=== PATIENT | female | born 1965 | race Caucasian/White ===

== ENCOUNTER → 2016-05-20 | Outpatient (CLI) | payer BC ==
--- NOTE | 2016-05-20 23:15 | MR ---
EXAMINATION TYPE: MR knee LT wo con DATE OF EXAM: 05/20/2016 6:37 PM COMPARISON: NONE HISTORY: PAIN IN LEFT KNEE TECHNIQUE: Multiplanar, multisequence imaging of the left knee is performed without IV contrast. FINDINGS: The anterior and posterior cruciate ligaments are intact. There is a small vertical tear through the anterior horn of the lateral meniscus. The other menisci appear fairly normal. There is a mild knee j oint effusion. I see no fracture. The collateral ligaments medially appear normal. There is slight in creased signal in the anterior aspect of the lateral collateral ligaments consistent with partial tea r. There is adjacent mild subcutaneous edema. I see no focal bone destruction. IMPRESSION: There is a small vertical tear of the anterior horn of the lateral meniscus. There is a partial tear of the medial collateral ligament anteriorly. No fracture. Mild to moderate knee joint effusion.
== END | disposition home or self-care (01) ==
LOC: RADMRIMAIN 17:31
PROVIDERS: ATTEND Orthopaedic Surgery
DX: M23.242 Derangement of anterior horn of lateral meniscus due to old tear or injury, left knee (principal); S83.412A Sprain of medial collateral ligament of left knee, initial encounter

== ENCOUNTER → 2016-07-16 | Outpatient (CLI) | payer BC ==
--- NOTE | 2016-07-16 08:27 | US ---
EXAMINATION TYPE: US transvaginal DATE OF EXAM: 07/16/2016 8:05 AM COMPARISON: NONE CLINICAL HISTORY: N95.0 Post menopausal bleeding. 2 weeks ago patient had discolored discharge - brow n, nothing now, no pain TECHNIQUE: TV Date of LMP: 2+years ago EXAM MEASUREMENTS: Uterus: 7.7 x 4.4 x 3.9 cm Endometrial Stripe: 0.3 cm Right Ovary: 1.7 x 1.1 x 0.8 cm Left Ovary: 1.8 x 1.1 x 1.2 cm Findings: 1. Uterus: Anteverted wnl 2. Endometrium: wnl 3. Right Ovary: 0.8cm follicle seen 4. Left Ovary: wnl 5. Bilateral Adnexa: wnl 6. Posterior cul-de-sac: wnl IMPRESSION: No significant abnormality appreciated.
== END ==
LOC: RADUSWWP 07:46
PROVIDERS: ATTEND Obstetrics & Gynecology
DX: N95.0 Postmenopausal bleeding (principal)
CPT/HCPCS: 76830

== ENCOUNTER → 2017-04-01 | Outpatient (CLI) | payer BC ==
--- NOTE | 2017-04-01 12:12 | BD ---
EXAMINATION TYPE: MG DEXA axial skeleton. DATE OF EXAM: 04/01/2017 COMPARISON: NONE CLINICAL HISTORY: PT IS A 52 YR OLD FEMALE...ICD10 CODE: N91.1 POST MENOPAUSAL SYMPTOMS Height: 69.5 Weight: 160 FRAX RISK QUESTIONS: Alcohol (3 or more units per day): NO Family History (Parent hip fracture): NO Glucocorticoids (More than 3mos): NO (Ex: prednisone, prednisolone, methylprednisolone, dexamethasone, and hydrocortisone). History of Fracture in Adulthood: YES Secondary Osteoporosis: NO 1. Type 1 Diabetes: NO 2. Hyperthyroidism: NO 3. Menopause before 45: AT 46 YRS OLD 4. Malnutrition: NO 5. Chronic liver disease: NO Rheumatoid Arthritis: NO Current Tobacco Use: NO RISK FACTORS HISTORY OF: History of Wrist Fracture: LT WRIST When: AN ADULT Family History of Osteoporosis: NO Active: YES Diet low in dairy products/other sources of calcium: NO Postmenopausal woman: YES AT 46 YRS OLD Lost more than 2 inches in height since high school: NO Hyperparathyroidism: NO Adrenal Insufficiency: NO MEDICATIONS: Additional Medications: ANTI SEIZURE MEDS ONLY Additional History: EPILEPSY, EXAM MEASUREMENTS: Bone mineral densitometry was performed using the [employer] System. Bone mineral density as measured about the Lumbar spine is: ----- L1-L4(G/cm2): 1.380 T Score Values are as follows: ----- L1: 1.2 ----- L2: 1.4 ----- L3: 2.5 ----- L4: 1.4 ----- L1-L4: 1.7 Bone mineral density THIS IS HER FIRST BONE DENSITY STUDY......BASELINE Bone mineral density about the R hip (g/cm2): 1.048 Bone mineral density about the L hip (g/cm2): 1.086 T Score values are as follows: -----R Neck: -0.3 -----L Neck: -0.2 -----R Total: 0.3 -----L Total: 0.6 Bone mineral density BASELINE STUDY FRAX%'S: THERE IS A 3.8% CHANCE OF A MAJOR OSTEOPOROTIC FX AND A 0.1% OF A HIP FX......PROBABILITY OF FX IN 10 YRS TIME IMPRESSION: Normal (Values between +1 and -1 indicate normal bone mass). Consider repeating this study in 5 year s or sooner if there is some new clinical indication. NOTE: T-SCORE=SD OF THE YOUNG ADULT MEAN.
--- NOTE | 2017-04-07 10:20 | MM ---
Reason for exam: screening (asymptomatic). Last mammogram was performed 6 years and 9 months ago. History: Patient had first child at age 35. Took hormonal contraceptives for 20 years. Physical Findings: A clinical breast exam by your physician is recommended on an annual basis and results should be correlated with mammographic findings. MG 3D Screening Mammo W/Cad Bilateral CC and MLO view(s) were taken. Prior study comparison: December 10, 2015, mammogram, performed at [facility]. November 28, 2014, mammogram, performed at [facility]. June 17, 2010, CAD bilateral diagnostic mammogram. January 24, 2010, right breast diagnostic digital tres. The breast tissue is heterogeneously dense. This may lower the sensitivity of mammography. No suspicious abnormality. No significant changes when compared with prior studies. ASSESSMENT: Negative, BI-RAD 1 RECOMMENDATION: Routine screening mammogram of both breasts in 1 year.
== END | disposition home or self-care (01) ==
LOC: RADMAMWWP 08:21
PROVIDERS: ATTEND Obstetrics & Gynecology
DX: Z12.31 Encounter for screening mammogram for malignant neoplasm of breast (principal); N95.1 Menopausal and female climacteric states
CPT/HCPCS: 77080; 77063; G0202

== ENCOUNTER → 2018-06-15 | Outpatient (CLI) | payer BC ==
--- NOTE | 2018-06-17 09:21 | MM ---
Reason for exam: screening (asymptomatic). Last mammogram was performed 1 year and 2 months ago. History: Patient is postmenopausal and had first child at age 35. Took hormonal contraceptives for 20 years. Physical Findings: A clinical breast exam by your physician is recommended on an annual basis and results should be correlated with mammographic findings. MG 3D Screening Mammo W/Cad Bilateral CC and MLO view(s) were taken. Prior study comparison: April 01, 2017, bilateral MG 3d screening mammo w/cad. December 10, 2015, mammogram, performed at [facility]. The breast tissue is heterogeneously dense. This may lower the sensitivity of mammography. No significant changes when compared with prior studies. ASSESSMENT: Negative, BI-RAD 1 RECOMMENDATION: Routine screening mammogram of both breasts in 1 year.
== END | disposition home or self-care (01) ==
LOC: RADMAMWWP 08:51
PROVIDERS: ATTEND Obstetrics & Gynecology
DX: Z12.31 Encounter for screening mammogram for malignant neoplasm of breast (principal)
CPT/HCPCS: 77063; 77067

== ENCOUNTER → 2019-06-05 | Outpatient (CLI) | payer BC ==
--- NOTE | 2019-06-05 19:02 | MR ---
EXAMINATION TYPE: MR shoulder LT wo con DATE OF EXAM: 06/05/2019 COMPARISON: Pain HISTORY: Lt shoulder pain/injury summer 2018 TECHNIQUE: Multiplanar, multisequence imaging of the left shoulder is performed without contrast. FINDINGS: Rotator Cuff: There is no evidence to suggest through thickness rotator cuff tear or retraction. Ther e is intermediate signal involving the anterior fibers of the supraspinatus tendon measuring approxim ately 8 mm in transverse dimension just proximal to the insertion compatible with an area of tendinos is Acromioclavicular Joint: Mild hypertrophic change of the AC joint but no mass effect upon the rotator cuff. No marrow edema. No fluid within the joint. Glenohumeral Joint: Joint space preserved with no sizable joint effusion. There is thickening and sli ght irregularity at the glenoid insertion of the inferior glenohumeral ligament. Labrum: The labrum appears grossly intact given limitation of non-arthrogram study. However there emilee ears to be mild irregularity and increased signal along the posterior superior labrum and a subtle te ar is not excluded. Biceps Tendon: The long head of biceps is in normal location within bicipital groove. Small amount of fluid surrounds the biceps tendon compatible with mild tendinosis. Bone marrow signal: No focal abnormal marrow signal is appreciated. IMPRESSION: 1. There is ill-definition and increased signal at the glenoid insertion of the inferior glenohumeral ligament compatible with ligamentous sprain and partial tear. Correlate clinically. 2. Supraspinatus tendinosis with no definite tear. 3. Bicipital mild tendinosis. 4. there is mild irregularity along the posterior superior labrum suspicious for subtle tear.
== END | disposition home or self-care (01) ==
LOC: RADMRIMAIN 18:07
PROVIDERS: ATTEND Orthopaedic Surgery
DX: M25.512 Pain in left shoulder (principal)

== ENCOUNTER → 2019-08-02 | Outpatient (CLI) | payer BC ==
[2019-08-02 08:44] LABS: HCT 45.3 % (34.0-46.0); HGB 15.1 gm/dL (11.4-16.0); MCH 29.4 pg (25.0-35.0); MCHC 33.2 g/dL (31.0-37.0); MCV 88.6 fL (80.0-100.0); Mean Platelet Volume 7.4; Platelet Count 270 k/uL (150-450); RBC 5.12 m/uL (3.80-5.40); RDW 12.5 % (11.5-15.5); WBC 5.5 k/uL (3.8-10.6)
[2019-08-02 08:49] LABS: T4, Free (Free Thyroxine) 0.91 ng/dL (0.78-2.19)
--- NOTE | 2019-08-02 09:52 | MM ---
Reason for exam: screening (asymptomatic). Last mammogram was performed 1 year and 2 months ago. History: Patient is postmenopausal and had first child at age 35. Took hormonal contraceptives for 20 years. Physical Findings: A clinical breast exam by your physician is recommended on an annual basis and results should be correlated with mammographic findings. MG 3D Screening Mammo W/Cad Bilateral CC and MLO view(s) were taken. Prior study comparison: June 15, 2018, bilateral MG 3d screening mammo w/cad. April 01, 2017, bilateral MG 3d screening mammo w/cad. The breast tissue is heterogeneously dense. This may lower the sensitivity of mammography. No suspicious abnormality. No significant changes when compared with prior studies. ASSESSMENT: Negative, BI-RAD 1 RECOMMENDATION: Routine screening mammogram of both breasts in 1 year.
== END | disposition home or self-care (01) ==
LOC: RADMAMWWP 07:09
PROVIDERS: ATTEND Obstetrics & Gynecology
DX: Z12.31 Encounter for screening mammogram for malignant neoplasm of breast (principal); Z13.220 Encounter for screening for lipoid disorders; Z13.29 Encounter for screening for other suspected endocrine disorder
CPT/HCPCS: 77063; 77067; 80061; 84439; 84443; 84479; 85027

== ENCOUNTER → 2019-11-01 | Outpatient (CLI) | payer BC ==
[2019-11-01 18:13] LABS: T4, Free (Free Thyroxine) 1.1 ng/dL (0.80-1.80)
== END | disposition home or self-care (01) ==
LOC: LABWHC1 10:52
PROVIDERS: ATTEND Obstetrics & Gynecology
DX: Z13.29 Encounter for screening for other suspected endocrine disorder (principal)
CPT/HCPCS: 36415; 84439; 84443; 84479

== ENCOUNTER → 2020-09-12 | Outpatient (CLI) | payer OTHER ==
[2020-09-12 08:22] LABS: HCT 42.2 % (34.0-46.0); HGB 14.6 gm/dL (11.4-16.0); MCH 30.1 pg (25.0-35.0); MCHC 34.7 g/dL (31.0-37.0); MCV 86.8 fL (80.0-100.0); Mean Platelet Volume 6.7; Platelet Count 263 k/uL (150-450); RBC 4.86 m/uL (3.80-5.40); WBC 5.3 k/uL (3.8-10.6)
[2020-09-12 08:33] LABS: Albumin 4.6 g/dL (3.5-5.0); Calcium 10.3 mg/dL (8.4-10.2); Potassium 5.5 mmol/L (3.5-5.1); Total Bilirubin 0.5 mg/dL (0.2-1.3); Total Protein 6.7 g/dL (6.3-8.2)
[2020-09-12 08:49] LABS: T4, Free (Free Thyroxine) 1.04 ng/dL (0.78-2.19)
--- NOTE | 2020-09-13 15:02 | MM ---
Reason for exam: screening (asymptomatic). Last mammogram was performed 1 year and 1 month ago. History: Patient is postmenopausal and had first child at age 35. Took hormonal contraceptives for 20 years. Physical Findings: A clinical breast exam by your physician is recommended on an annual basis and results should be correlated with mammographic findings. MG 3D Screening Mammo W/Cad Bilateral CC and MLO view(s) were taken. Prior study comparison: August 02, 2019, bilateral MG 3d screening mammo w/cad. June 15, 2018, bilateral MG 3d screening mammo w/cad. The breast tissue is heterogeneously dense. This may lower the sensitivity of mammography. No significant changes when compared with prior studies. ASSESSMENT: Benign, BI-RAD 2 RECOMMENDATION: Routine screening mammogram of both breasts in 1 year.
== END | disposition home or self-care (01) ==
LOC: RADMAMWWP 07:03
PROVIDERS: ATTEND Obstetrics & Gynecology
DX: Z12.31 Encounter for screening mammogram for malignant neoplasm of breast (principal); Z78.0 Asymptomatic menopausal state
CPT/HCPCS: 77063; 77067; 80053; 80061; 84439; 84443; 84479; 85027

== ENCOUNTER → 2020-10-16 | Outpatient (CLI) | payer OTHER ==
[2020-10-17 00:18] LABS: Albumin 4.9 g/dL (3.80-4.90); Albumin/Globulin Ratio 2.88 (1.60-3.17); Anion Gap 9.4 mmol/L (4.00-12.00); BUN/Creat Ratio 17.78 Ratio (12.00-20.00); Calcium 10.3 mg/dL (8.7-10.3); Carbon Dioxide 28.6 mmol/L (21.6-31.8); Globulin 1.7 g/dL (1.6-3.3); Non-African American GFR(CKD) 72.5 (60.0-200.0); Potassium 5.1 mmol/L (3.5-5.5); Total Bilirubin 0.4 mg/dL (0.3-1.2); Total Protein 6.6 g/dL (6.2-8.2)
[2020-10-17 00:26] LABS: Prolactin 6.4 ng/mL (2.8-29.2); T4, Free (Free Thyroxine) 1.1 ng/dL (0.80-1.80)
== END | disposition home or self-care (01) ==
LOC: LABWHC1 09:18
PROVIDERS: ATTEND Internal Medicine Endocrinology, Diabetes & Metabolism
DX: E03.8 Other specified hypothyroidism (principal); E83.52 Hypercalcemia; R53.83 Other fatigue
CPT/HCPCS: 36415; 80053; 83970; 84146; 84439; 84443; 86376

== ENCOUNTER → 2020-10-24 | Outpatient (CLI) | payer OTHER ==
--- NOTE | 2020-10-24 14:42 | US ---
EXAMINATION TYPE: US thyroid st tissue head/neck DATE OF EXAM: 10/24/2020 COMPARISON: NONE CLINICAL HISTORY: E03.8 Hypothyroidism. hypothyroidism GLAND SIZE: Right Lobe: 5.0 x 2.0 x 2.6 cm Overall Parenchyma: heterogenous Left Lobe: 4.2 x 1.2 x 1.2 cm Overall Parenchyma: homogeneous Isthmus Thickness: 0.4 cm NODULES RIGHT: # of nodules measured on right: 2 1. 0.8 X 0.9 x 0.8 cm, upper , solid, hypoechoic nodule, which is taller than wide, with smooth mar gins, with echogenic foci. Prior size: no prior 2. 0.9 X 0.6 x 0.8 cm, mid , solid, hypoechoic nodule, which is wider than tall, with smooth margin s, with echogenic foci. Prior size: no prior LEFT: # of nodules measured on left: 1 1. 0.7 X 0.4 x 0.4 cm, upper , solid, hypoechoic nodule, which is wider than tall, with smooth abigail ins, without echogenic foci. Prior size: no prior ISTHMUS: # of nodules measured in the isthmus: 0 Bilateral neck scanned, no evidence of lymphadenopathy. IMPRESSION: 1 early suspicious findings, follow-up exam in one year is recommended. 2017 ACR TI-RADS LEVEL: TR-RADS 4 - Moderately Suspicious: Follow if > 1 cm, FNA if > 1.5 cm *Highest TI-RADS level nodule reported
== END | disposition home or self-care (01) ==
LOC: RADUSWWP 14:04
PROVIDERS: ATTEND Internal Medicine Endocrinology, Diabetes & Metabolism
DX: E04.2 Nontoxic multinodular goiter (principal)
CPT/HCPCS: 76536

== ENCOUNTER → 2021-01-27 | Outpatient (CLI) | payer OTHER | END | disposition home or self-care (01) | LOC: LABWHC1 12:06 | PROVIDERS: ATTEND Internal Medicine Endocrinology, Diabetes & Metabolism | DX: E03.8 Other specified hypothyroidism (principal) | CPT/HCPCS: 36415; 84443 ==

== ENCOUNTER → 2021-04-15 | Outpatient (CLI) | payer OTHER | END | disposition home or self-care (01) | LOC: LABWHC1 08:59 | PROVIDERS: ATTEND Internal Medicine Endocrinology, Diabetes & Metabolism | DX: E03.8 Other specified hypothyroidism (principal) | CPT/HCPCS: 36415; 84443 ==

== ENCOUNTER → 2021-07-29 | Outpatient (CLI) | payer OTHER ==
[2021-07-30 00:37] LABS: African American GFR (CKD) 78.1 (60.0-200.0); Albumin 4.8 g/dL (3.8-4.9); Albumin/Globulin Ratio 2.61 (1.60-3.17); Anion Gap 14.7 mmol/L (10.00-18.00); BUN/Creat Ratio 16.3 Ratio (12.00-20.00); Blood Urea Nitrogen 15.5 mg/dL (9.0-27.0); Calcium 10.3 mg/dL (8.7-10.3); Carbon Dioxide 24.8 mmol/L (20.0-27.5); Globulin 1.9 g/dL (1.6-3.3); Non-African American GFR(CKD) 67.3 (60.0-200.0); Potassium 4.4 mmol/L (3.5-5.5); Total Bilirubin 0.2 mg/dL (0.30-1.20); Total Protein 6.7 g/dL (6.2-8.2)
== END | disposition home or self-care (01) ==
LOC: LABWHC1 12:14
PROVIDERS: ATTEND Internal Medicine Endocrinology, Diabetes & Metabolism
DX: E03.8 Other specified hypothyroidism (principal); E83.52 Hypercalcemia
CPT/HCPCS: 36415; 80053; 83970; 84443; 86376

== ENCOUNTER → 2021-10-29 | Outpatient (CLI) | payer OTHER ==
[2021-10-29 16:21] LABS: African American GFR (CKD) 73.4 (60.0-200.0); Albumin/Globulin Ratio 2.94 (1.60-3.17); Anion Gap 15.2 mmol/L (10.00-18.00); BUN/Creat Ratio 11.1 Ratio (12.00-20.00); Blood Urea Nitrogen 11.1 mg/dL (9.0-27.0); Calcium 10.1 mg/dL (8.7-10.3); Carbon Dioxide 29.8 mmol/L (20.0-27.5); Globulin 1.7 g/dL (1.6-3.3); Non-African American GFR(CKD) 63.4 (60.0-200.0); Potassium 4.8 mmol/L (3.5-5.5); Total Bilirubin 0.3 mg/dL (0.30-1.20); Total Protein 6.7 g/dL (6.2-8.2)
== END | disposition home or self-care (01) ==
LOC: LABWHC1 08:00
PROVIDERS: ATTEND Internal Medicine Endocrinology, Diabetes & Metabolism
DX: E04.2 Nontoxic multinodular goiter (principal); E03.8 Other specified hypothyroidism; E83.52 Hypercalcemia
CPT/HCPCS: 36415; 80053; 82306; 83970; 84443

== ENCOUNTER → 2021-11-12 | Outpatient (CLI) | payer OTHER ==
--- NOTE | 2021-11-12 20:12 | US ---
EXAMINATION TYPE: US thyroid st tissue head/neck DATE OF EXAM: 11/12/2021 COMPARISON: Thyroid US 10/24/20 CLINICAL HISTORY: E04.2 NONTOXIC MULTINODULAR GOITER. Nodule GLAND SIZE: Right Lobe: 5.4 x 1.9 x 1.5 cm Overall Parenchyma: Heterogenous Left Lobe: 4.4 x 0.9 x 0.9 cm Overall Parenchyma: Heterogenous Isthmus Thickness: 0.16 cm NODULES RIGHT: # of nodules measured on right: 2 1. 0.8 X 0.5 x 0.7 cm, upper lateral, solid or almost completely solid, hyperechoic nodule, which i s wider than tall, with smooth margins, without echogenic foci. Prior size: 0.8 x 0.9 x 0.8 cm 2. 0.6 X 0.6 x 0.6 cm, mid mid, solid or almost completely solid, hypoechoic nodule, which is wider than tall, with smooth margins, without echogenic foci. Prior size: 0.9 x 0.6 x 0.8 cm Multiple calcified areas; largest measuring 0.5 cm LEFT: # of nodules measured on left: 0 ISTHMUS: # of nodules measured in the isthmus: 0 Bilateral neck scanned, no evidence of lymphadenopathy. IMPRESSION: Stable nonspecific subcentimeter nodularity with diffuse glandular heterogeneity. Correlate with thyr oid function testing.
== END | disposition home or self-care (01) ==
LOC: RADUSWWP 16:53
PROVIDERS: ATTEND Internal Medicine Endocrinology, Diabetes & Metabolism
DX: E04.2 Nontoxic multinodular goiter (principal)
CPT/HCPCS: 76536

== ENCOUNTER → 2022-01-16 | Outpatient (CLI) | payer OTHER ==
--- NOTE | 2022-01-16 15:37 | BD ---
EXAMINATION TYPE: Axial Bone Density DATE OF EXAM: 01/16/2022 COMPARISON: NONE CLINICAL HISTORY: 57 years year old Female. ICD-10 CODE: Z78.0 post menopausal Height: 5 FT 9 1/2 IN Weight: 167 FRAX RISK QUESTIONS: Alcohol (3 or more units per day): NO Family History (Parent hip fracture): NO Glucocorticoids (More than 3mos): NO (Ex: prednisone, prednisolone, methylprednisolone, dexamethasone, and hydrocortisone). History of Fracture in Adulthood: YES Secondary Osteoporosis: 1. Type 1 Diabetes: NO 2. Hyperthyroidism: NO 3. Menopause before 45: NO 4. Malnutrition: NO 5. Chronic liver disease: NO Rheumatoid Arthritis: NO Current Tobacco Use: NO RISK FACTORS HISTORY OF: History of Wrist Fracture: RT When: 15-20 YEARS AGO Surgery to Spine/Hip(right/left)/Wrist (right/left): NO Family History of Osteoporosis: NO Active: YES Diet low in dairy products/other sources of calcium: NO Postmenopausal woman: YES Take estrogen and/or progesterone medications: NO Lost more than 2 inches in height since high school: NO Frequent falls: NO Poor Health: GOOD Hyperparathyroidism: NO Adrenal Insufficiency: NO MEDICATIONS: Thyroid Medications: YES Which medication: SYNTHROID How Lon YEARS Additional Medications: SYNTHROID,LACTITOL, Additional History: EXAM MEASUREMENTS: Bone mineral densitometry was performed using the [employer] System. Bone mineral density as measured about the Lumbar spine is: ----- L1-L4(G/cm2): 1.293 T Score Values are as follows: ----- L1: 0.6 ----- L2: 0.6 ----- L3: 1.6 ----- L4: 0.7 ----- L1-L4: 0.9 Bone mineral density has: DECREASED -6.5 % since study of: 2017 Bone mineral density about the R hip (g/cm2): 0.958 Bone mineral density about the L hip (g/cm2): 0.997 T Score values are as follows: -----R Neck: -0.6 -----L Neck: -0.3 -----R Total: -0.1 -----L Total: 0.6 Bone mineral density has: DECREASED -2.2 % since study of: 2017 FRAX%s: The graph provided illustrates a 10.0 % chance for a major osteoporotic fx and a 0.4 % chance for the hips probability for fx in 10 years time. IMPRESSION: Normal (Values between +1 and -1 indicate normal bone mass). Consider repeating this study in 5 year s or sooner if there is some new clinical indication. NOTE: T-SCORE=SD OF THE YOUNG ADULT MEAN.
--- NOTE | 2022-01-20 06:55 | MM ---
Reason for Exam: Screening (asymptomatic). Last mammogram was performed 1 year(s) and 5 month(s) ago. Patient History: Menarche at age 15. First Full-Term at age 35. Late child-bearing (after 30). Postmenopausal. Patient has history of breast feeding. Patient used Hormonal Contraceptives for 20 years. Risk Values: Kelsey 5 year model risk: 1.6%. NCI Lifetime model risk: 10.0%. Prior Study Comparison: 12/10/2015 Screening Mammogram, [facility]. 04/01/2017 Bilateral Screening Mammogram, [facility]. 06/15/2018 Bilateral Screening Mammogram, [facility]. 08/02/2019 Bilateral Screening Mammogram, [facility]. 09/12/2020 Bilateral Screening Mammogram, [facility]. Tissue Density: The breast tissue is heterogeneously dense. This may lower the sensitivity of mammography. Findings: Analyzed By CAD. There is no suspicious group of microcalcifications or new suspicious mass in either breast. Overall Assessment: Negative, BI-RAD 1 Management: Screening Mammogram of both breasts in 1 year. Some advise bilateral breast ultrasound surveillance in patient's with background dense tissue. A clinical breast exam by your physician is recommended on an annual basis and results should be correlated with mammographic findings. Electronically signed and approved by: Orlin Diamond M.D.
== END | disposition home or self-care (01) ==
LOC: RADMAMWWP 09:15
PROVIDERS: ATTEND Obstetrics & Gynecology
DX: Z12.31 Encounter for screening mammogram for malignant neoplasm of breast (principal); Z78.0 Asymptomatic menopausal state
CPT/HCPCS: 77063; 77067; 77080

== ENCOUNTER → 2022-08-17 | Outpatient (CLI) | payer OTHER ==
--- NOTE | 2022-08-17 09:24 | US ---
EXAMINATION TYPE: US abdomen complete DATE OF EXAM: 08/17/2022 COMPARISON: NONE CLINICAL HISTORY: R19.00INTRA-ABD AND PELVIC SWELLING, MASS AND LUM palpable area seen superior to um bilicus TECHNIQUE: Multiple sonographic images of the abdomen are obtained. FINDINGS: EXAM MEASUREMENTS: Liver Length: 15.8 cm Gallbladder Wall: 0.3 cm CBD: 1.0 cm Spleen: 13.8 cm. Normal less than 12.5 cm. Right Kidney: 10.6 x 5.5 x 5.3 cm Left Kidney: 10.4 x 5.0 x 5.2 cm Pancreas: wnl Liver: wnl Gallbladder: Multiple large stones, patient not symptomatic Evidence for sonographic Valverde's sign: no CBD: wnl Spleen: enlarged Right Kidney: wnl Left Kidney: anechoic area = 1.6 x 1.4 x 1.1cm prominent pyramid versus cyst. Upper IVC: wnl Abd Aorta: wnl At palpable just superior to umbilicus was 4.5 x 2.3 x 1.4cm probable herniation that involves fat, n o peristalsing seen, did not enlarge with valsalva, patient states it can feel bigger when standing, no known injury IMPRESSION: 1. Cholelithiasis. 2. Splenomegaly 3. Anterior abdominal wall hernia likely with mesenteric fat at the palpable region in the periumbili jon region. 4. Left renal cyst versus prominent upper pole left kidney
== END | disposition home or self-care (01) ==
LOC: RADUSWWP 07:33
PROVIDERS: ATTEND Family Medicine
DX: K80.20 Calculus of gallbladder without cholecystitis without obstruction (principal); K46.9 Unspecified abdominal hernia without obstruction or gangrene; R16.1 Splenomegaly, not elsewhere classified
CPT/HCPCS: 76700

== ENCOUNTER → 2023-03-11 | Outpatient (CLI) | payer OTHER ==
--- NOTE | 2023-03-11 09:56 | MM ---
Reason for Exam: Screening (asymptomatic). Last mammogram was performed 1 year(s) and 1 month(s) ago. Patient History: Menarche at age 15. First Full-Term at age 35. Late child-bearing (after 30). Postmenopausal. Patient has history of breast feeding. Patient used Hormonal Contraceptives for 20 years. Risk Values: Kelsey 5 year model risk: 1.6%. NCI Lifetime model risk: 9.8%. Prior Study Comparison: 12/10/2015 Screening Mammogram, [facility]. 04/01/2017 Bilateral Screening Mammogram, [facility]. 06/15/2018 Bilateral Screening Mammogram, [facility]. 08/02/2019 Bilateral Screening Mammogram, [facility]. 09/12/2020 Bilateral Screening Mammogram, [facility]. 01/16/2022 Bilateral MG 3D screening mammo w/cad, [facility]. Tissue Density: The breast tissue is heterogeneously dense. This may lower the sensitivity of mammography. Findings: Analyzed By CAD. There is no suspicious group of microcalcifications or new suspicious mass. Overall Assessment: Negative, BI-RAD 1 Management: Screening Mammogram of both breasts in [address] [facility] will attempt to contact patient to return for supplemental views and ultrasound if indicated. Patient should continue monthly self-breast exams. A clinical breast exam by your physician is recommended on an annual basis. This exam should not preclude additional follow-up of suspicious palpable abnormalities. Note on Kelsey scores and lifetime risk: 1. A Kelsey score greater than 3% is considered moderate risk. If this is the case, consider specialist referral to assess eligibility for a risk reducing agent. 2. If overall lifetime risk for the development of breast cancer is 20% or higher, the patient may qualify for future screening with alternating mammogram and breast MRI. Electronically signed and approved by: Humberto Mcgrath DO
== END | disposition home or self-care (01) ==
LOC: RADMAMWWP 07:43
PROVIDERS: ATTEND Obstetrics & Gynecology
DX: Z12.31 Encounter for screening mammogram for malignant neoplasm of breast (principal); Z78.0 Asymptomatic menopausal state
CPT/HCPCS: 77063; 77067

== ENCOUNTER → 2023-05-28 | Outpatient (CLI) | payer OTHER ==
[2023-05-28 15:04] LABS: ALT 16 U/L (8-44); AST 19 U/L (13-35); Albumin 4.7 g/dL (3.8-4.9); Albumin/Globulin Ratio 2.61 Ratio (1.60-3.17); Alkaline Phosphatase 87 U/L (41-126); BUN/Creat Ratio 12.22 Ratio (12.00-20.00); Calcium 10.7 mg/dL (8.7-10.3); Carbon Dioxide 28.9 mmol/L (21.6-31.8); Chloride 105 mmol/L (96-109); Globulin 1.8 g/dL (1.6-3.3); Glucose 92 mg/dL (70-110); Potassium 4.5 mmol/L (3.5-5.5); Sodium 144 mmol/L (135-145); Total Bilirubin 0.3 mg/dL (0.3-1.2); Total Protein 6.5 g/dL (6.2-8.2)
== END | disposition home or self-care (01) ==
LOC: LABWHC1 08:10
PROVIDERS: ATTEND Internal Medicine Endocrinology, Diabetes & Metabolism
DX: E03.8 Other specified hypothyroidism (principal)
CPT/HCPCS: 36415; 80053; 84443

== ENCOUNTER → 2023-06-16 | Outpatient (CLI) | payer OTHER ==
[2023-06-16 16:42] LABS: ALT 15 U/L (8-44); AST 18 U/L (13-35); Albumin 4.7 g/dL (3.8-4.9); Albumin/Globulin Ratio 2.94 Ratio (1.60-3.17); Alkaline Phosphatase 92 U/L (41-126); BUN/Creat Ratio 12.67 Ratio (12.00-20.00); Blood Urea Nitrogen 11.4 mg/dL (9.0-27.0); Calcium 10.7 mg/dL (8.7-10.3); Carbon Dioxide 29.8 mmol/L (21.6-31.8); Chloride 104 mmol/L (96-109); Globulin 1.6 g/dL (1.6-3.3); Glucose 87 mg/dL (70-110); Sodium 144 mmol/L (135-145); T4, Free (Free Thyroxine) 1.47 ng/dL (0.80-1.80); Total Bilirubin 0.3 mg/dL (0.3-1.2); Total Protein 6.3 g/dL (6.2-8.2)
== END | disposition home or self-care (01) ==
LOC: LABWHC1 07:20
PROVIDERS: ATTEND Internal Medicine Endocrinology, Diabetes & Metabolism
DX: E04.2 Nontoxic multinodular goiter (principal); E83.52 Hypercalcemia
CPT/HCPCS: 36415; 80053; 82306; 83970; 84439; 84443

== ENCOUNTER → 2023-06-17 | Outpatient (CLI) | payer OTHER ==
--- NOTE | 2023-06-17 13:44 | US ---
EXAMINATION TYPE: US thyroid st tissue head/neck DATE OF EXAM: 06/17/2023 COMPARISON: 11/12/2021 CLINICAL INDICATION: Female, 58 years old with history of E04.2 NONTOXIC MULTINODULAR GOITER; GLAND SIZE: Right Lobe: 5.9 x 1.8 x 2.0 cm Overall Parenchyma: heterogenous Left Lobe: 4.6 x 1.3 x 1.0 cm Overall Parenchyma: heterogenous Isthmus Thickness: 0.3 cm NODULES RIGHT: # of nodules measured on right: 2 solid nodules, multiple calcifications 1. 0.9 X 0.6 x 0.6 cm, mid lateral, solid or almost completely solid, hyperechoic TR 3 nodule, whic h is wider than tall, with ill-defined margins, without echogenic foci. Prior size: 0.8 x 0.5 x 0.7 cm 2. 0.7 X 0.6 x 0.7 cm, mid, solid or almost completely solid, isoechoic TR 3 nodule, which is wider than tall, with smooth margins, without echogenic foci. Prior size: 0.6 x 0.6 x 0.6 cm LEFT: # of nodules measured on left: 0 ISTHMUS: # of nodules measured in the isthmus: 0 A thickened lymph node along the left lateral neck measuring 2.3 x 1.1 x 0.9 cm. IMPRESSION: 1. Diffusely heterogeneous glandular parenchyma may reflect goiter. 2. Two solid TR3 nodules on the right measuring up to 9 mm versus 8 mm, previously. 3. A thickened and borderline-sized lymph node node along the left lateral neck measuring 2.3 x 1.1 c m. Probably reactive/post inflammatory. Correlate with physical exam findings in the palpable abnorma lity. Recommend follow-up ultrasound in 2-3 months to reassess. 2017 ACR TI-RADS LEVEL: TR-RADS 3 - Mildly Suspicious: Follow if > 1.5 cm, FNA if > 2.5 cm *Highest TI-RADS level nodule reported
== END | disposition home or self-care (01) ==
LOC: RADUSWWP 06:56
PROVIDERS: ATTEND Internal Medicine Endocrinology, Diabetes & Metabolism
DX: E04.2 Nontoxic multinodular goiter (principal); R22.0 Localized swelling, mass and lump, head
CPT/HCPCS: 76536

== ENCOUNTER → 2023-07-13 | Outpatient (CLI) | payer OTHER ==
--- NOTE | 2023-07-13 15:19 | US ---
EXAMINATION TYPE: US abdomen complete DATE OF EXAM: 07/13/2023 COMPARISON: 08/17/2022 - Us Abdomen Complete CLINICAL INDICATION: Female, 58 years old with history of K43.9 VENTRAL HERNIA WITHOUT OBSTRUCTION OR GANGRE; Patient denies any signs or symptoms at this time TECHNIQUE: Multiple sonographic images of the abdomen are obtained. FINDINGS: EXAM MEASUREMENTS: Liver Length: 14.9 cm Gallbladder Wall: 0.3 cm CBD: 1.4 cm Spleen: 13.0 cm Right Kidney: 9.6 x 3.9 x 4.9 cm Left Kidney: 10.2 x 5.0 x 4.2 cm The appearance of a tight, fatty supraumbilical hernia measuring 3.7 x 1.4 x 2.8 cm Pancreas: wnl Liver: Multiple areas of ringdown noted within the left lobe Gallbladder: Shadowing stones measuring up to 2.8 cm. No abnormal gallbladder distention, wall thick ening, or surrounding fluid. Evidence for sonographic Valverde's sign: No CBD: Dilated (versus 1 cm on 08/17/2022) Spleen: Upper limits of normal in size Right Kidney: wnl Left Kidney: A 2.1 cm central upper pole simple cyst redemonstrated. No hydronephrosis. Upper IVC: wnl Abd Aorta: wnl IMPRESSION: 1. A 3.7 cm fatty supraumbilical hernia extending across a tight abdominal wall at the neck. 2. Suggestion of ringdown artifact in multiple areas in the left liver lobe. This can be seen with pn eumobilia (such as in the setting of previous sphincterotomy or biliary stent) or portal venous gas ( in the setting of ischemic bowel which is considered unlikely in the absence of acute symptoms). Furt her clinical correlation recommended. Follow-up CT if no previous history of ERCP or sphincterotomy. 3. Cholelithiasis. 4. Bile duct dilated to 1.4 cm versus 1.0 cm on 08/17/2022. Correlate with alkaline phosphatase and wilber i levels to exclude biliary obstruction.
== END | disposition home or self-care (01) ==
LOC: RADUSWWP 06:55
PROVIDERS: ATTEND Family Medicine
DX: K43.9 Ventral hernia without obstruction or gangrene (principal)
CPT/HCPCS: 76700

== ENCOUNTER → 2023-07-13 | Outpatient (CLI) | payer OTHER ==
[2023-07-13 08:43] LABS: African American GFR (CKD) >90 (>60 ml/min/1.73 sqM); Blood Urea Nitrogen 11 mg/dL (7-17); Calcium 9.7 mg/dL (8.4-10.2); Non-African American GFR(CKD) 81 (>60 ml/min/1.73 sqM)
== END | disposition home or self-care (01) ==
LOC: LABWHC1 07:42
PROVIDERS: ATTEND Otolaryngology
DX: E83.52 Hypercalcemia (principal)
CPT/HCPCS: 36415; 82306; 82310; 82565; 83970; 84520; 86376

== ENCOUNTER → 2023-09-17 | Outpatient (CLI) | payer OTHER ==
--- NOTE | 2023-09-20 11:55 | BD ---
EXAMINATION TYPE: Axial Bone Density DATE OF EXAM: 09/17/2023 CLINICAL HISTORY: 58 years old Female. ICD-10 CODE: E83.52 HYPERCALCEMIA Height: 68.5 in Weight: 167 lbs FRAX RISK QUESTIONS: History of Fracture in Adulthood: lt wrist fx age 36 RISK FACTORS HISTORY OF: History of Wrist Fracture: lt wrist fx age 36 MEDICATIONS: Thyroid Medications: yes Which medication: Synthroid How Lon+ years EXAM MEASUREMENTS: Bone mineral densitometry was performed using the [employer] System. Bone mineral density as measured about the Lumbar spine is: ----- L1-L4(G/cm2): 1.286 T Score Values are as follows: ----- L1: 0.5 ----- L2: 0.6 ----- L3: 1.3 ----- L4: 0.8 ----- L1-L4: 0.9 Z Score Values are as follows: ----- L1: 1.2 ----- L2: 1.3 ----- L3: 2.0 ----- L4: 1.5 ----- L1-L4: 1.5 Bone mineral density has: Decreased -0.5% since study of: 01/16/2022 Bone mineral density about the R hip (g/cm2): 0.999 Bone mineral density about the L hip (g/cm2): 1.067 T Score values are as follows: -----R Neck: -0.6 -----L Neck: -0.2 -----R Total: -0.1 -----L Total: 0.5 Z Score values are as follows: -----R Neck: 0.3 -----L Neck: 0.7 -----R Total: 0.5 -----L Total: 1.0 Bone mineral density has: Decreased -1.0% since study of: 01/16/2022 FRAX%s: The graph provided illustrates a 10.8% chance for a major osteoporotic fx and a 0.4% chance f or the hips probability for fx in 10 years time. IMPRESSION: Normal (Values between +1 and -1 indicate normal bone mass). Consider repeating this study in 5 year s or sooner if there is some new clinical indication. NOTE: T-SCORE=SD OF THE YOUNG ADULT MEAN.
== END | disposition home or self-care (01) ==
LOC: RADBDWWP 15:30
PROVIDERS: ATTEND Internal Medicine Endocrinology, Diabetes & Metabolism
DX: E83.52 Hypercalcemia (principal)
CPT/HCPCS: 77080

== ENCOUNTER → 2023-09-17 | Outpatient (CLI) | payer OTHER ==
--- NOTE | 2023-09-17 17:14 | US ---
EXAMINATION TYPE: US kidneys/renal and bladder DATE OF EXAM: 09/17/2023 COMPARISON: Abdominal ultrasound dated 07/13/2023 CLINICAL INDICATION: Female, 58 years old with history of N28.1 CYST OF KIDNEY, ACQUIRED; left renal cyst, no symptoms EXAM MEASUREMENTS: Right Kidney: 9.9 x 4.9 x 4.1 cm Left Kidney: 10.1 x 4.7 x 4.7 cm Right Kidney: No hydronephrosis or masses seen Left Kidney: hypoechoic lesion, possible cyst = 1.6 x 2.0 x 1.7cm Bladder: wnl There is no evidence for hydronephrosis at this point in time. No nephrolithiasis is seen. No robbin s are identified. The urinary bladder is anechoic. IMPRESSION: 1. Stable 2 cm cyst of the upper pole left kidney. 2. No solid renal masses, renal calcifications or hydronephrosis bilaterally
== END | disposition home or self-care (01) ==
LOC: RADUSWWP 15:32
PROVIDERS: ATTEND Family Medicine
DX: N28.1 Cyst of kidney, acquired (principal)
CPT/HCPCS: 76770

== ENCOUNTER → 2023-10-26 | Outpatient (CLI) | payer OTHER ==
--- NOTE | 2023-10-30 20:12 | MR ---
EXAMINATION TYPE: MR MRCP DATE OF EXAM: 10/26/2023 6:48 AM CLINICAL INDICATION:Female, 58 years old with history of K81.1 dilated bile duct, Chronic cholecystit is, dilated bile duct. COMPARISON: 09/17/2023, 07/13/2023 TECHNIQUE: Multi planar, T2-weighted imaging with and without fat saturation and chemical shift imag ing was performed of the abdomen. Then, heavily T2 weighted imaging (half-Fourier acquisition single- shot turbo spin-echo) was utilized in order to study the biliary system. Maximum intensity projectio n images were reconstructed from the original data of the biliary tree. 3D images were created on a [employer] work station. No Gadolinium given. FINDINGS: Lower Thorax: No evidence for acute process. MRCP: * The intrahepatic ducts have a normal appearance. * The common hepatic duct measures 7 mm in size. * The common bile duct at the level of the pancreatic head measures 7 mm in size. * The pancreatic duct is prominent measuring up to 4 mm.. * The gallbladder demonstrates multiple gallstones in the gallbladder lumen. Gallbladder wall within normal limits for size. Abdomen: Liver: No evidence for hepatic steatosis or cirrhosis. Scattered high T2 signal cysts are seen throug hout the liver. One cyst in the right hepatic lobe segment 6rrr thin septations measuring up to 18 mm . Pancreas: No ductal dilation. No evidence for solid mass. Spleen: Normal for size. Adrenal glands: Unremarkable. Kidneys: No evidence for obstructive uropathy. No suspicious renal masses. Simple appearing left leonardo pelvic renal cysts. Stomach and Bowel: No evidence for bowel wall thickening or evidence for obstruction. Scattered colon ic diverticula. Retroperitoneum/Peritoneum: No evidence of pneumoperitoneum or free fluid. Vasculature: No aortic aneurysm. Musculoskeletal: The osseous structures appear intact. Lymph Nodes: No gross evidence for lymphadenopathy. Abdominal wall: Fat-containing umbilical hernia.e IMPRESSION: 1. No evidence for acute cholecystitis. 2. No evidence to suggest ductal stricture, choledocholithiasis. Mild/minimal biliary ductal dilatat ion. 3. Cholelithiasis. 4. Scattered hepatic cysts some of which have thin septations. 5. Left peripelvic renal cysts. 6. Colonic diverticulosis.
== END | disposition home or self-care (01) ==
LOC: RADMRIMAIN 06:01
PROVIDERS: ATTEND Surgery
DX: K83.8 Other specified diseases of biliary tract (principal); K80.10 Calculus of gallbladder with chronic cholecystitis without obstruction; K76.89 Other specified diseases of liver; N28.1 Cyst of kidney, acquired; K57.30 Diverticulosis of large intestine without perforation or abscess without bleeding
CPT/HCPCS: 74181

== ENCOUNTER → 2024-02-01 | Outpatient (CLI) | payer OTHER, BC ==
[2024-02-01 11:31] LABS: Calcium 10.4 mg/dL (8.7-10.3)
== END | disposition home or self-care (01) ==
LOC: LABWHC1 07:08
PROVIDERS: ATTEND Surgery
DX: Z98.890 Other specified postprocedural states (principal); Z90.89 Acquired absence of other organs
CPT/HCPCS: 36415; 82306; 82310; 83970

== ENCOUNTER → 2024-05-30 | Outpatient (CLI) | payer OTHER ==
--- NOTE | 2024-05-30 08:43 | MM ---
Reason for Exam: Screening (asymptomatic). Last mammogram was performed 1 year(s) and 3 month(s) ago. Patient History: Menarche at age 15. First Full-Term at age 35. Late child-bearing (after 30). Postmenopausal. Patient has history of breast feeding. Patient used Hormonal Contraceptives for 20 years. Risk Values: Kelsey 5 year model risk: 1.7%. NCI Lifetime model risk: 9.6%. Prior Study Comparison: 09/12/2020 Bilateral Screening Mammogram, [facility]. 01/16/2022 Bilateral MG 3D screening mammo w/cad, [facility]. 03/11/2023 Bilateral MG 3D screening mammo w/cad, [facility]. Tissue Density: The breasts are heterogeneously dense, which may obscure small masses. Findings: Analyzed By CAD. There is no suspicious new group of microcalcifications or new suspicious mass in either breast. Overall Assessment: Negative, BI-RAD 1 Management: Screening Mammogram of both breasts in 1 year. . Patient should continue monthly self-breast exams. A clinical breast exam by your physician is recommended on an annual basis. This exam should not preclude additional follow-up of suspicious palpable abnormalities. Note on Kelsey scores and lifetime risk: 1. A Kelsey score greater than 3% is considered moderate risk. If this is the case, consider specialist referral to assess eligibility for a risk reducing agent. 2. If overall lifetime risk for the development of breast cancer is 20% or higher, the patient may qualify for future screening with alternating mammogram and breast MRI. [facility], , 05/30/2024 8:40 AM. Electronically signed and approved by: Orlin Diamond M.D.
== END | disposition home or self-care (01) ==
LOC: RADMAMWWP 07:02
PROVIDERS: ATTEND Family Medicine
DX: Z12.31 Encounter for screening mammogram for malignant neoplasm of breast (principal); Z78.0 Asymptomatic menopausal state; R92.333 Mammographic heterogeneous density, bilateral breasts
CPT/HCPCS: 77063; 77067

== ENCOUNTER → 2024-07-20 | Outpatient (CLI) | payer OTHER ==
--- NOTE | 2024-07-20 13:31 | US ---
EXAMINATION TYPE: US thyroid st tissue head/neck DATE OF EXAM: 07/20/2024 COMPARISON: US, CT neck CLINICAL INDICATION: Female, 59 years old with history of E04.1 NONTOXIC SINGLE THYROID NODULE; F/U k nown nodules TECHNIQUE: Grayscale and color Doppler imaging of the thyroid gland. FINDINGS: GLAND SIZE: Right Lobe: 5.8 x 1.7 x 1.8 cm Overall Parenchyma: heterogeneous with increased vascularity. Left Lobe: 4.9 x 1.2 x 0.8 cm Overall Parenchyma: heterogeneous with increased vascularity. Isthmus Thickness: 0.2 cm NODULES RIGHT: # of nodules measured on right: 1. 0.7 X 0.4 x 0.6 cm, mid lateral, Prior size: 0.9 x 0.6 x 0.6 cm TIRADS Score: 3 TIRADS Category 3: Composition: Solid or almost completely solid (2 points). Echogenicity: Hyperechoic or isoechoic (1 point). Shape: Wider than tall (0 points). Margin: Smooth (0 points). Echogenic foci: None or large comet-tail artifacts (0 points) Recommendation: If >2.5cm: FNA; If >1.5cm: Follow up at 1,3,5 years 2. 0.5 X 0.5 x 0.4 cm, mid, solid or almost completely solid, Prior size: 0.7 x 0.6 x 0.7 cm TIRADS Score: 3 TIRADS Category 3: Composition: Solid or almost completely solid (2 points). Echogenicity: Hyperechoic or isoechoic (1 point). Shape: Wider than tall (0 points). Margin: Smooth (0 points). Echogenic foci: None or large comet-tail artifacts (0 points) Recommendation: If >2.5cm: FNA; If >1.5cm: Follow up at 1,3,5 years LEFT: # of nodules measured on left: 0 ISTHMUS: # of nodules measured in the isthmus: 0 Multiple, sub-centimeter nodules scattered throughout right lobe, largest 2 measured and compared to prior. Prominent lymph nodes bilateral neck as visualized on prior exam as well, have similar appear ance. IMPRESSION: Heterogenous thyroid gland correlate with serum markers for thyroiditis. Right BI-RADS 3 thyroid nodules that do not meet criteria for follow-up or biopsy. [facility], , 07/20/2024 1:29 PM
[2024-07-20 20:15] LABS: ALT 20 U/L (8-44); AST 24 U/L (13-35); Albumin 4.7 g/dL (3.8-4.9); Albumin/Globulin Ratio 2.94 Ratio (1.60-3.17); Alkaline Phosphatase 97 U/L (41-126); Carbon Dioxide 29.9 mmol/L (21.6-31.8); Chloride 103 mmol/L (96-109); Globulin 1.6 g/dL (1.6-3.3); Glucose 91 mg/dL (70-110); Potassium 5.1 mmol/L (3.5-5.5); Sodium 145 mmol/L (135-145); T4, Free (Free Thyroxine) 1.16 ng/dL (0.80-1.80); Total Bilirubin 0.2 mg/dL (0.3-1.2); Total Protein 6.3 g/dL (6.2-8.2)
== END | disposition home or self-care (01) ==
LOC: RADUSWWP 12:29
PROVIDERS: ATTEND Internal Medicine Endocrinology, Diabetes & Metabolism
DX: E04.2 Nontoxic multinodular goiter (principal); Z86.39 Personal history of other endocrine, nutritional and metabolic disease
CPT/HCPCS: 76536; 80053; 82306; 83970; 84439; 84443